=== PATIENT | male | born 1960 | race African-American/Black ===

== ENCOUNTER 2018-11-25 21:06 | Emergency (ER) | payer OTHER, SELFPAY ==
[2018-11-25 21:07] VITALS: BP 140/87; PULSE 79; RESP 16; TEMP 36.4; O2SAT 97; BMI 36.6
--- NOTE | 2018-11-25 21:10 | RAD_ITS ---
STUDY: X-RAY - RIGHT FOOT CLINICAL: Male, 58 years old. Swelling and pain TECHNIQUE: 3 view(s) of the foot. COMPARISON: None. FINDINGS: There is no evidence of fracture or dislocation. Mild degenerative changes are present at the first MTP joint and midfoot. There are no radiodense foreign bodies. RAD/Foot min 3 Views IMPRESSION: No fracture or dislocation. Mild degenerative changes of the first MTP joint and midfoot. Electronically Signed: Joey Vora, at 21:31 EDT Tel , Service support ,
--- NOTE | 2018-11-25 23:09 | ED.VISSUMM ---
- ER Visit Summary Date of Service: 11/25/18 Chief Complaint: Right foot pain History of Present Illness: The patient is a 58 M who presents with right foot pain and swelling that is been getting worse over the past week. Patient describes pain as aching. Patient states it is worse with walking. Patient denies any weakness but admits to some tingling over the dorsum of the right foot. Patient denies any fevers or chills. Patient denies any trauma or injury. Physical Examination: Vital signs are stable. Patient is afebrile. Patient is in no acute distress. There is full range of motion of the right foot. There is some mild tenderness of the dorsal aspect of the right foot. There is no bony crepitance or step-off. Skin is warm and dry. There is some mild erythema and warmth over the dorsal aspect of the right foot. There is also a fungal rash noted in the webspace between the fourth and fifth digits. There is no active discharge or drainage. Sensation was intact to light touch in all digits. Capillary refill is less than 2 seconds in all digits. Test Results: X-rays of the right foot were obtained. There is no acute fracture or evidence of osteomyelitis. Emergency Department Course and Treatment: Patient was given prescriptions for Lamisil cream and Keflex. Patient was instructed to follow-up with a primary care physician in 5 to 7 days. Patient understood and was agreeable with the plan. All questions were answered. Disposition: Discharge home Impression: 1. Tinea pedis 2. Cellulitis right foot This note was generated with [employer] dictation software. It may contain incorrect words, spelling, and punctuation that were not noted in review of the chart prior to signing ED Disposition - Plan for ED Patient: Disposition: Home or Assisted Living Diagnosis: Cellulitis of right foot, Tinea pedis Instructions: Cellulitis, Athlete'S Foot Prescriptions: Cephalexin [Keflex] 500 mg PO Q6 #40 cap Prescription Printed Terbinafine HCl [Lamisil At] 1 gm TP TID #15 cream..g. Prescription Printed Referrals: Care Physician,No Primary [NON-STAFF] - Deann Quinonez DO [STAFF PHYSICIAN] - 5-7 Days
[2018-11-25 23:41] LABS: Bedside Glucose 79 mg/dL (70-110)
[2018-11-25 23:55] VITALS: BP 145/90; PULSE 58; RESP 17; O2SAT 98
== END 2018-11-25 23:56 | disposition home or self-care (01) ==
PROVIDERS: Emergency Provider Emergency Medicine; Family Provider Family Medicine; PCP Family Medicine
DX: B35.3 Tinea pedis (principal); L03.115 Cellulitis of right lower limb
CPT/HCPCS: 73630; 82962; 99282

== ENCOUNTER 2022-03-03 16:02 | Emergency (ER) | payer OTHER, SELFPAY ==
[2022-03-03 16:04] VITALS: BP 134/94; PULSE 99; RESP 18; TEMP 36.6; O2SAT 98; BMI 28.7
--- NOTE | 2022-03-03 22:09 | ED.RN ---
PATIENT CALLED BY RADIOLOGY STAFF MULTIPLE TIMES FOR XRAY PATIENT CAN NOT BE FOUND AT THIS TIME
== END 2022-03-03 22:12 | disposition left against medical advice (07) ==
LOC: ED 22:15
PROVIDERS: PCP Family Medicine
DX: Z53.21 Procedure and treatment not carried out due to patient leaving prior to being seen by health care provider (principal)